=== PATIENT | male | born 1965 | race African-American/Black ===

== ENCOUNTER 2017-11-08 00:35 | Emergency (ER) | payer SELFPAY ==
[~2017-11-08] VITALS: Ht 177.8 cm; Wt 79.0 kg
[2017-11-08 00:40] VITALS: BP 127/83
[2017-11-08] MEDS ORDERED: HYDROcodone/APAP 5/325 TABLET ONE (01:19)
[2017-11-08] MEDS ORDERED: HYDROcodone/APAP 5/325 TABLET PO ONE (01:30)
== END 2017-11-08 01:41 | disposition home or self-care (01) ==
LOC: ED 01:30
DX: K40.90 Unilateral inguinal hernia, without obstruction or gangrene, not specified as recurrent (principal)
CPT/HCPCS: 99283